=== PATIENT | female | born 1945 | race Caucasian/White ===

== ENCOUNTER 2020-07-08 10:33 | Day surgery (SDC) | payer MEDICARE, OTHER ==
[~2020-07-08] VITALS: Ht 154.9 cm; Wt 72.2 kg
[~2020-07-08 10:33] MED LIST: ASPI81CH PO; ASPI81EC PO; Antivert25 MG PO; BIOTIN1 MG PO; Bentyl20 MG; CIPRO500 MG PO; COLE625; LISI5 PO; NEBI5 PO; NITR.4SL SL; OMEGA-3 FISH O1 EAC6 PO; OMEP20ER PO; PANT40 PO; Prinivil10 MG PO; TRIHYD253B PO; VITAMIN D-32000 UNI1; VITAMIN D-32000 UNIT PO; VITAMIN D33000 UNIT PO
--- NOTE | 2020-07-08 11:16 | NUR ---
07/08/20 1116 Cedric Skelton 1ST IV ATTEMPT RIGHT HAND VEIN BLEW, 2ND IV ATTEMPT IN RIGHT AC VEIN BLEW-CMT
== END 2020-07-08 12:12 | disposition home or self-care (01) ==
LOC: ORSCSDS 10:33
PROVIDERS: Student in an Organized Health Care Education/Training Program
PROC: 0DB58ZX Excision of Esophagus, Via Natural or Artificial Opening Endoscopic, Diagnostic (ICD-10-PCS; principal; 2020-07-08 11:45)
PROC: 0DB88ZX Excision of Small Intestine, Via Natural or Artificial Opening Endoscopic, Diagnostic (ICD-10-PCS; principal; 2020-07-08 11:45)
PROC: 0DB68ZX Excision of Stomach, Via Natural or Artificial Opening Endoscopic, Diagnostic (ICD-10-PCS; principal; 2020-07-08 11:45)
DX: R14.0 Abdominal distension (gaseous) (principal); R13.10 Dysphagia, unspecified; K44.9 Diaphragmatic hernia without obstruction or gangrene; K29.70 Gastritis, unspecified, without bleeding; K31.9 Disease of stomach and duodenum, unspecified; I10 Essential (primary) hypertension; E78.5 Hyperlipidemia, unspecified; E66.9 Obesity, unspecified; Z68.30 Body mass index [BMI] 30.0-30.9, adult; Z79.82 Long term (current) use of aspirin; Z79.899 Other long term (current) drug therapy
CPT/HCPCS: 88305; 88342; J2405; J2704; J7120

== ENCOUNTER 2020-07-13 15:31 | Observation (INO) | payer MEDICARE, OTHER ==
[~2020-07-13] VITALS: Ht 154.9 cm; Wt 71.2 kg
[2020-07-13 15:58] LABS: Hematocrit 41.9 % (33.0-51.0); Hemoglobin 13.1 g/dL (11.5-16.0); Mean Corpuscular HGB 29.8 pg (26.0-34.0); Mean Corpuscular HGB Conc 31.3 g/dL (31.5-36.5); Mean Corpuscular Volume 95 fL (80-100); Platelet Count 224 K/mm3 (150-400); RDW Coefficient Variation 13.7 % (11.7-14.2); RDW Standard Deviation 48.1 fL (35.1-46.3); Red Blood Cell Count 4.39 M/mm3 (3.80-5.20); White Blood Cell Count 10.35 K/mm3 (4.00-11.30)
[2020-07-13 16:31] LABS: Alanine Aminotransfer (ALT/SGP 17 U/L (12-78); Albumin, Blood 3.3 g/dL (3.4-5.0); Albumin/Globulin Ratio 0.9 (0.8-1.8); Alk Phos 64 U/L (50-136); Anion Gap 7 mmol/L (6-16); Aspartate Aminotrans (AST/SGOT 11 U/L (12-37); Bilirubin, Total 0.5 mg/dL (0.1-1.0); Blood Urea Nitrogen 19 mg/dL (8-24); Bun/Creatinine Ratio 25.4 (12.0-20.0); CO2, Blood 25 mmol/L (21-32); Calcium, Blood 9.1 mg/dL (8.5-10.1); Chloride, Blood 108 mmol/L (98-108); Creatinine, Blood 0.75 mg/dL (0.40-1.00); Globulin, Blood 3.6 g/dL (2.2-4.0); Glomerular Filtration Rate >60 (60-); Glucose, Blood 115 mg/dL (70-99); Potassium, Blood 3.9 mmol/L (3.5-5.5); Sodium, Blood 140 mmol/L (136-145); Total Protein, Blood 6.9 g/dL (6.4-8.2); Troponin I <0.015 ng/mL (0.000-0.040)
[2020-07-13 16:56] LABS: BASOPHILS PERCENT MAN 1 % (0-2); EOSINOPHILS ABSOLUTE MAN 0.31 K/mm3 (0.00-0.68); EOSINOPHILS PERCENT MAN 3 % (0-6); LYMPHOCYTES ABSOLUTE MAN 4.76 K/mm3 (0.84-5.20); LYMPHOCYTES PERCENT MAN 46 % (21-46); MONOCYTES ABSOLUTE MAN 0.41 K/mm3 (0.16-1.47); MONOCYTES PERCENT MAN 4 % (4-13); NEUTROPHILS ABSOLUTE MAN 4.76 K/mm3 (1.96-9.15); SEG NEUTROPHILS PERCENT MAN 46 % (41-73); TOTAL CELLS COUNTED 100
[2020-07-13] MEDS ORDERED: EZET10 PO (18:33)
[2020-07-13] MEDS ORDERED: Bentyl20 MG PO (19:46)
--- NOTE | 2020-07-14 04:33 | NUR ---
ACCIDENT EXAMINER SUMMARY ALERT AND ORIENTED. IND TO BATHROOM. C/O CHEST PRESSURE AND TIGHTNESS. PRN NITRO HAS NOT BEEN NEEDED. PT HAS BEEN NPO SINCE MIDNIGHT IN PREP FOR VISIT TO [facility] TODAY WITH DR. HAM. VSS. BED IN LOWEST POSITION WITH CALL LIGHT IN REACH. WILL CONTINUE TO MONITOR AND REPORT TO ONCOMING RN.
--- NOTE | 2020-07-14 08:16 | NUR ---
REPORT GIVEN TO ELISA GOLD IN ICU. WILL SEND ALL BELONGINGS AND BRAKFAST TRAY.
--- NOTE | 2020-07-14 09:29 | NUR ---
ASSUMED CARE: REPORT RECEIVED FROM DENTON JACOBS RN AT BEDSIDE. PT ARRIVED TO ICU-12 AT 0805. ON ARRIVAL, THE PT IS AWAKE, A&O. ASSESSMENT CHARTED, VSS. ACCESS SITE TO R RADIAL & R FEMORAL. R RADIAL W/ TR BAND W/ 12 CC AIR PLACED AT 0750. R FEMORAL SITE W/ PERCLOSE DEVICE PLACED AT 0745. BOTH SITES ARE STABLE; NO BLEEDING, BRUISING OR HEMATOMA FORMATION NOTED. REPORT HAS ALSO BEEN CALLED FROM [facility] FLOOR RN. DR HAM AT BEDSIDE & STS THAT PT IS CLEARED TO GO HOME TODAY FROM A CARDIOLOGY STANDPOINT. WILL NOTIFY HOSPITALIST DURING ROUNDS. WILL COTINUE TO MONITOR & UPDATE NEEDED.
[2020-07-14] MEDS ORDERED: CLOP75 PO (13:20)
[2020-07-14] MEDS ORDERED: Isosorbide Mono30 MG PO (13:21)
--- NOTE | 2020-07-14 17:45 | NUR ---
DISCHARGE TO HOME: DRESSING TO R FEMORAL PUNCTURE SITE HAS BEEN CHANGED & SITE IS NOW STABLE W/ NO NEW ACTIVE BLEEDING OR OOZING TO THE AREA. SHE HAS BEEN ABLE TO AMBULATE IN THE ROOM & THE SITE REMAINS STABLE. R RADIAL SITE IS ALSO STABLE W/ TEGADERM DRESSING CDI. WRIST IMMOBILIZER REMAINS IN PLACE. RADIAL & FEMORAL SITE PRECAUTIONS HAVE BEEN DISCUSSED W/ THE PT & INSTRUCTION FORMS SIGNED. PLAVIX/ASA CONTRACT SIGNED. PT HAS VERBALIZED AGREEANCE TO ALL D/C INSTRUCTIONS & DENIES FURTHER QUESTIONS. SHE IS HAVING NO CP AT TIME OF D/C. ALL MONITOR & PIVs HAVE BEEN REMOVED & PT HAS TAKEN ALL BELONGINGS OUT W/ HER. PT TAKEN OUT OF FACILITY VIA WC BY EVAN Avila RN, AT APPROX 1730.
== END 2020-07-14 17:30 | disposition home or self-care (01) ==
LOC: ER 15:31 → MEDS 20:20 → ICUW 20:20 → MEDS 20:20 → ICUW 07-14 07:56
PROVIDERS: Physician Assistant; ADMIT Internal Medicine
PROC: B2111ZZ Fluoroscopy of Multiple Coronary Arteries using Low Osmolar Contrast (ICD-10-PCS; principal; 2020-07-14)
DX: I25.110 Atherosclerotic heart disease of native coronary artery with unstable angina pectoris (principal); I10 Essential (primary) hypertension; E78.5 Hyperlipidemia, unspecified; I73.9 Peripheral vascular disease, unspecified; E78.00 Pure hypercholesterolemia, unspecified; K21.9 Gastro-esophageal reflux disease without esophagitis; C91.10 Chronic lymphocytic leukemia of B-cell type not having achieved remission; I71.4 Abdominal aortic aneurysm, without rupture; Z88.1 Allergy status to other antibiotic agents; Z88.2 Allergy status to sulfonamides; Z88.8 Allergy status to other drugs, medicaments and biological substances; Z88.4 Allergy status to anesthetic agent; Z91.038 Other insect allergy status; Z79.02 Long term (current) use of antithrombotics/antiplatelets; Z79.82 Long term (current) use of aspirin; Z79.899 Other long term (current) drug therapy; Z86.73 Personal history of transient ischemic attack (TIA), and cerebral infarction without residual deficits; Z95.1 Presence of aortocoronary bypass graft; Z90.710 Acquired absence of both cervix and uterus; Z90.49 Acquired absence of other specified parts of digestive tract; Z90.711 Acquired absence of uterus with remaining cervical stump; Z23 Encounter for immunization
CPT/HCPCS: 36415; 71046; 80053; 84484; 85025; 93005; 93010; 93455; 93567; 96374; 99152; 99153; 99285-25; A9270; A9270-GY; C1760; C1769; C1894; G0008; G0378; J1644; J2250; J3010; J7030; Q9967

== ENCOUNTER 2020-08-20 10:20 | Day surgery (SDC) | payer MEDICARE, OTHER ==
[~2020-08-20] VITALS: Ht 154.9 cm; Wt 74.0 kg
[~2020-08-20 10:20] MED LIST changes: +Bentyl20 MG PO; +CLOP75 PO; +EZET10 PO; +Isosorbide Mono30 MG PO
[2020-08-20] MEDS ORDERED: PANT40 PO (11:02)
--- NOTE | 2020-08-20 17:36 | NUR ---
PT DRESSED SELF. TR BAND REMOVED, RADIAL SITE CLEANSED AND CLOTH DOT PLACED. SALINE LOCK REMOVED WITH CATHETER INTACT.
--- NOTE | 2020-08-20 17:50 | NUR ---
PT AND RECEIVED DISCHARGE INSTRUCTIONS, MED LIST AND AFTER CARE INSTRUCTIONS; VERBALIZED GOOD UNDERSTANDING. PT LEFT FACILITY VIA W/C CONDITION STABLE.
== END 2020-08-20 17:50 | disposition home or self-care (01) ==
LOC: MHTC 10:20
DX: I77.1 Stricture of artery (principal); I10 Essential (primary) hypertension; E78.5 Hyperlipidemia, unspecified; E78.00 Pure hypercholesterolemia, unspecified; C91.10 Chronic lymphocytic leukemia of B-cell type not having achieved remission; I73.9 Peripheral vascular disease, unspecified; K21.9 Gastro-esophageal reflux disease without esophagitis; E55.9 Vitamin D deficiency, unspecified; I25.10 Atherosclerotic heart disease of native coronary artery without angina pectoris; Z86.73 Personal history of transient ischemic attack (TIA), and cerebral infarction without residual deficits; Z95.1 Presence of aortocoronary bypass graft; Z88.1 Allergy status to other antibiotic agents; Z88.2 Allergy status to sulfonamides; Z88.8 Allergy status to other drugs, medicaments and biological substances; Z91.030 Bee allergy status; Z79.82 Long term (current) use of aspirin; Z79.01 Long term (current) use of anticoagulants; Z79.899 Other long term (current) drug therapy; Z79.02 Long term (current) use of antithrombotics/antiplatelets
CPT/HCPCS: 76937; 86900; 86901; 99152; 99153; C1769; C1876; C1887; C1894; J1644; J2250; J3010; J7030; J7050; Q9967

== ENCOUNTER 2021-05-03 04:34 | Emergency (ER) | payer MEDICARE, OTHER ==
[~2021-05-03] VITALS: Ht 152.4 cm; Wt 63.5 kg
[2021-05-03 05:44] LABS: BASOPHILS ABSOLUTE AUTO 0.04 K/mm3 (0.00-0.23); BASOPHILS PERCENT AUTO 0 % (0-2); EOSINOPHILS ABSOLUTE AUTO 0.17 K/mm3 (0.00-0.68); EOSINOPHILS PERCENT AUTO 1 % (0-6); Hemoglobin 13.3 g/dL (11.5-16.0); Mean Corpuscular HGB 30.6 pg (26.0-34.0); Mean Corpuscular HGB Conc 32.4 g/dL (31.5-36.5); Mean Corpuscular Volume 95 fL (80-100); Mean Platelet Volume 8.8 fL (9.1-12.4); Platelet Count 238 K/mm3 (150-400); RDW Standard Deviation 48.7 fL (35.1-46.3); Red Blood Cell Count 4.34 M/mm3 (3.80-5.20); White Blood Cell Count 13.41 K/mm3 (4.00-11.30)
[2021-05-03 05:47] LABS: IMMATURE GRAN ABSOLUTE AUTO 0.02 K/mm3 (0.00-0.10); IMMATURE GRAN PERCENT AUTO 0 % (0-1); LYMPHOCYTES PERCENT AUTO 55 % (21-46); MONOCYTES ABSOLUTE AUTO 0.89 K/mm3 (0.16-1.47); MONOCYTES PERCENT AUTO 7 % (4-13); NEUTROPHILS ABSOLUTE AUTO 4.89 K/mm3 (1.96-9.15); NEUTROPHILS PERCENT AUTO 37 % (41-73)
[2021-05-03 06:05] LABS: Alanine Aminotransfer (ALT/SGP 22 U/L (12-78); Albumin, Blood 3.1 g/dL (3.4-5.0); Albumin/Globulin Ratio 0.9 (0.8-1.8); Alk Phos 64 U/L (50-136); Anion Gap 6 mmol/L (6-16); Aspartate Aminotrans (AST/SGOT 11 U/L (12-37); Bilirubin, Total 0.3 mg/dL (0.1-1.0); Blood Urea Nitrogen 16 mg/dL (8-24); Bun/Creatinine Ratio 22.5 (12.0-20.0); CO2, Blood 26 mmol/L (21-32); Calcium, Blood 8.9 mg/dL (8.5-10.1); Chloride, Blood 111 mmol/L (98-108); Creatinine, Blood 0.71 mg/dL (0.40-1.00); Globulin, Blood 3.5 g/dL (2.2-4.0); Glomerular Filtration Rate >60 (60-); Glucose, Blood 99 mg/dL (70-99); Magnesium, Blood 2.3 mg/dL (1.6-2.4); Potassium, Blood 3.9 mmol/L (3.5-5.5); Sodium, Blood 143 mmol/L (136-145); Total Protein, Blood 6.6 g/dL (6.4-8.2); Troponin I <0.015 ng/mL (0.000-0.040)
== END 2021-05-03 08:48 | disposition home or self-care (01) ==
LOC: ER 04:34
PROVIDERS: Emergency Medicine
DX: R07.89 Other chest pain (principal); I10 Essential (primary) hypertension; K21.9 Gastro-esophageal reflux disease without esophagitis; I25.10 Atherosclerotic heart disease of native coronary artery without angina pectoris; Z79.899 Other long term (current) drug therapy; Z79.82 Long term (current) use of aspirin; Z79.02 Long term (current) use of antithrombotics/antiplatelets; Z88.2 Allergy status to sulfonamides; Z88.8 Allergy status to other drugs, medicaments and biological substances; Z91.038 Other insect allergy status; Z88.4 Allergy status to anesthetic agent; Z95.1 Presence of aortocoronary bypass graft
CPT/HCPCS: 71046; 80053; 83690; 83735; 83880; 84484; 85025; 93005; 93010; 99285-25

== ENCOUNTER 2021-09-04 10:08 | Day surgery (SDC) | payer MEDICARE, OTHER ==
[~2021-09-04] VITALS: Ht 154.9 cm; Wt 62.1 kg
[2021-09-04] MEDS ORDERED: LEVSOD25 PO (10:32)
[2021-09-04] MEDS ORDERED: Hair, Skin & N1 EACH PO (10:32)
--- NOTE | 2021-09-04 13:35 | NUR ---
PT RETURNED TO RECOVERY ROOM IN BED. RIGHT FEMORAL GROIN SITE SOFT NON-TENDER WTIH NO HEMATOMA, NO PULSATILE BLEEDING AND INTACT DRESSING. R PT PULSE DOPPLER. PT DENIES CHEST PAIN. CALL LIGHT IN REACH.
--- NOTE | 2021-09-04 13:55 | NUR ---
DR KENNY IN ROOM TO SEE PT.
--- NOTE | 2021-09-04 15:00 | NUR ---
right groin site soft and nontender. PT pulse doppler. no bleeding. no hematoma.
--- NOTE | 2021-09-04 15:49 | NUR ---
right groin site remains soft and non tender. no bleeding, no hematoma.
--- NOTE | 2021-09-04 16:15 | NUR ---
right groin site soft and nontender. no hematoma. no bleeding. PT doppler
--- NOTE | 2021-09-04 17:03 | NUR ---
PATIENT UP TO REST ROOM. RIGHT GROIN SITE REMAINS SOFT AND NONTENDER. NO HEMATOMA.
--- NOTE | 2021-09-04 17:07 | NUR ---
IV SITE DCED WITH CATHETER IN TACT
--- NOTE | 2021-09-04 17:46 | NUR ---
PATIENT VERBALIZED UNDERSTANDING OF DISCHARGE INSTRUCTIONS AND PRECAUTIONS. IV SITE DCED WITH CATHETER INTACT. RIGHT GROIN SITE REMAINS SOFT AND NONTENDER. NO FURTHER QUESTIONS. PATIENT TRANSFERRED TO CAR VIA WHEELCHAIR WHERE IS DRIVING.
== END 2021-09-04 17:00 | disposition home or self-care (01) ==
LOC: MHTC 10:08
DX: K55.069 Acute infarction of intestine, part and extent unspecified (principal); Z88.1 Allergy status to other antibiotic agents; Z88.8 Allergy status to other drugs, medicaments and biological substances; Z88.2 Allergy status to sulfonamides
CPT/HCPCS: 76937; 99152; 99153; C1760; C1769; C1876; C1887; C1894; J1644; J2250; J3010; J7030; Q9967

== ENCOUNTER 2021-09-09 06:21 | Inpatient (IN) | payer MEDICARE, OTHER ==
[~2021-09-09] VITALS: Ht 154.9 cm; Wt 55.4 kg
[~2021-09-09 06:21] MED LIST changes: +Hair, Skin & N1 EACH PO; +LEVSOD25 PO
[2021-09-09] MEDS ORDERED: PANT40 PO (07:29)
--- NOTE | 2021-09-09 12:11 | NUR ---
PT BEGAN TO APPEAR PALE, STATED SHE WAS HAVING DIFFICULTY TAKING A DEEP BREATH, AND JUST FELT "HORRIBLE". BP CURRENTLY 50'S/30'S. DR. JOHNSON NOTIFIED, IS AT BEDSIDE. FLUIDS INFUSING WIDE OPEN.
--- NOTE | 2021-09-09 12:33 | NUR ---
PT STATES SHE IS FEELING BETTER AFTER FLUID BOLUS. BP CURRENTLY 106/51. PENDING CT SCAN.
--- NOTE | 2021-09-09 12:58 | NUR ---
PT BACK FROM IMG. PTS R FEM SITE IS STABLE WITH NO BLEEDING, OOZING OR HEMATOMA NOTED AT THIS TIME. PT DENIES ANY PAIN. RRAD IS ALSO STABLE WITH NO BLEEDING, OOZING OR HEMATOMA NOTED. VSS. WILL CONTINUE TO MONITOR. PT DENIES ANY NEEDS AT THIS TIME.
--- NOTE | 2021-09-09 13:26 | NUR ---
PT ASSISTED TO USE BEDPAN. RIGHT GROIN AND RADIAL SITES REMAIN STABLE. SBP CURRENTLY IN THE 110'S. CALL LIGHT IN REACH. PENDING ADMIT, DR JOHNSON TO SPEAK WITH MANAGER OF NETWORK.
[2021-09-09 13:47] LABS: Hematocrit 32.2 % (33.0-51.0); Hemoglobin 10.7 g/dL (11.5-16.0)
--- NOTE | 2021-09-09 14:45 | NUR ---
PT TO ICU VIA BED, ON MONITOR FOR TRANSPORT. VS STABLE AT TIME OF ADMIT TO ICU. PT CONTINUES TO C/O UPPER ABD AND LOWER CHEST PAIN, ALONG WITH FREQUENT BELCHING, AND SOME RIGHT SHOULDER PAIN. PT'S SPOUSE, ASHUTOSH, HAS BEEN CALLED AND UPDATED WITH PT'S ADMIT STATUS.
[2021-09-09 16:04] LABS: Hematocrit 32.7 % (33.0-51.0); Hemoglobin 10.9 g/dL (11.5-16.0)
--- NOTE | 2021-09-09 16:47 | NUR ---
ADMIT/SHIFT SUMMARY PT ARRIVED TO ICU 14 AT 1440 VIA BED. PT S/P TUFTING MACHINE FIXER PROCEDURE. PT WITH RIGHT FEMORAL ACCESS SITE WITH DRESSING C/D/I, AND RIGHT RADIAL TR BAND IN PLACE WITH ARM BOARD. PT APPEARS PALE. PT IS AWAKE, ALERT, AND ORIENTED. PT TALKATIVE. PT COMPLAINS OF SOME INTERMITTENT RIGHT SHOULDER PAIN AND UPPER ABD DISCOMFORT. VITAL SIGNS STABLE. PT ON ROOM AIR. POWERGLIDE TO ANGELA PLACED. DR LR, DR EDOUARD, AND DR JOHNSON HAVE ALL DISCUSSED THE CASE AND HAVE SEEN THE PT. TR BAND BEING DEFLATED AT THIS TIME. WILL CONTINUE TO MONITOR AND REPORT OFF TO ONCOMING RN.
--- NOTE | 2021-09-09 19:30 | NUR ---
ASSUMED CARE PATIENT LYING IN BED WITH EYES CLOSED AND TELEVISION ON. PICC TO ANGELA SALINE LOCKED. PERSONAL BELONGINGS IN CUPBOARD IN ROOM. PULSE 110'S, SPO2 MID TO HIGH 90'S, BP STABLE W/ MAPS GREATER THAN 65. PATIENT OPENS EYES SPONTANEOUSLY AND GREETS STAFF UPON ENTERING ROOM. FOLLOWS DIRECTIONS AND MAKES PLEASANT CONVERSATION. REPORT COMPLETED W/ DAYSHIFT ALLA.
[2021-09-09 21:10] LABS: Hematocrit 32.1 % (33.0-51.0); Hemoglobin 10.6 g/dL (11.5-16.0)
[2021-09-10 03:13] LABS: BASOPHILS ABSOLUTE AUTO 0.01 K/mm3 (0.00-0.23); BASOPHILS PERCENT AUTO 0 % (0-2); EOSINOPHILS PERCENT AUTO 0 % (0-6); Hematocrit 30.9 % (33.0-51.0); Hemoglobin 10.2 g/dL (11.5-16.0); IMMATURE GRAN ABSOLUTE AUTO 0.09 K/mm3 (0.00-0.10); IMMATURE GRAN PERCENT AUTO 1 % (0-1); LYMPHOCYTES ABSOLUTE AUTO 1.53 K/mm3 (0.84-5.20); LYMPHOCYTES PERCENT AUTO 12 % (21-46); MONOCYTES ABSOLUTE AUTO 0.71 K/mm3 (0.16-1.47); MONOCYTES PERCENT AUTO 6 % (4-13); Mean Corpuscular HGB 30.7 pg (26.0-34.0); Mean Corpuscular Volume 93 fL (80-100); NEUTROPHILS PERCENT AUTO 82 % (41-73); Platelet Count 161 K/mm3 (150-400); RDW Coefficient Variation 13.5 % (11.7-14.2); RDW Standard Deviation 46.4 fL (35.1-46.3); Red Blood Cell Count 3.32 M/mm3 (3.80-5.20); White Blood Cell Count 12.94 K/mm3 (4.00-11.30)
[2021-09-10 05:27] LABS: Anion Gap 9 mmol/L (6-16); Blood Urea Nitrogen 20 mg/dL (8-24); Bun/Creatinine Ratio 31.5 (12.0-20.0); CO2, Blood 23 mmol/L (21-32); Calcium, Blood 8.7 mg/dL (8.5-10.1); Chloride, Blood 111 mmol/L (98-108); Creatinine, Blood 0.63 mg/dL (0.40-1.00); Glomerular Filtration Rate >60 (60-); Glucose, Blood 126 mg/dL (70-99); Sodium, Blood 143 mmol/L (136-145)
--- NOTE | 2021-09-10 06:04 | NUR ---
SHIFT SUMMARY PATIENT CONTINUED TO HAVE ABD/RT RIB SPASMING/CRAMPING T/O THE NIGHT. ORDERS OBTAINED FOR MORPHINE 1MG Q4H PRN, BUT PATIENT DECLINED D/T FAMILY ALLERGY TO MORPHINE. TYLENOL 650MG Q6H PRN STARTED AND 2 DOSES GIVEN. PATIENT STILL EXPERIENCING INTERMITTENT PAIN. RT RADIAL AND RT FEMORAL SITES ARE BOTH FREE OF HEMATOMA, OOZING, BLEEDING, AND TENDERNESS. V/S REMAINED STABLE W/ HR 80'S-90'S, EXCEPT WHEN EXPERIENCING PAIN INCREASES TO 130'S-140'S; BP STABLE W/ SBP GREATER THAN 100 AND MAPS GREATER THAN 65. PULSES IN ELSIE DP AND PT ABSENT, POPLITEAL PULSES FAINT ELSIE. FEET ARE WARM PINK AND CAP REFILL IS LESS THAN 3 SECONDS. BT REMAIN ACTIVE X 4 W/ NO BM DURING SHIFT. 400ML URINE OUT. PICC TO ANGELA SALINE LOCKED. PATIENT REMAINED NPO EXCEPT FOR SIPS OF WATER TO TAKE MEDICATIONS.
--- NOTE | 2021-09-10 11:23 | NUR ---
ASSUMED CARE @0700 PATIENT IS ALERT AND ORIENTED X4. 02 SATS >93% OM RA. HR SR-ST 90s-110, HR INCREASES UP TO 140s WHEN PATIENT HAS ABDOMINAL CRAMPS. RIGHT RADIAL SITE HAS SMALL AMOUNT OF BRUISING, CLEAR DRESSING IN PLACE WITH SPLINT, SENSATIOND, TEMP AND COLOR WNL, PULSE STRONG. RIGHT FEMORAL SITE WITH TEGADERM CHG IN PLACE, C/D/I. NO HEMATOMA FELT BUT ABDOMEN AND AROUND SITE VERY TENDER WITH PALPATION. DR. JOHNSON TO ROOM TO ASSESS PATIENT IN THE AM, PAIN MEDS ORDERED, ADVANCED TO CLEAR LIQUID DIET AND CHANGED TO PCU STATUTS. PATIENT IS ABLE TO MOVE SLIGHTLY IN BED BUT IS STILL PAINFUL. USES BEDPAN AND BOWEL TONES ACTIVE. INCIDENT WITH TRYING TO VISIT PATIENT OUTSIDE OF VISITING HOUR AND CAUSING A SCENE EXPLAINED TO PATIENT, SHE STATED HE KNEW SHE WAS HERE, WHEN SHE WAS ADMITTED TO ICU AND SHE HAS BEEN TALKING TO HIM ON THE PHONE TODAY.
--- NOTE | 2021-09-10 11:27 | NUR ---
PT'S ARRIVED AT [facility], STOPPED BY SCREENERS AND REMINDED OF [facility] CURRENT VISITATION POLICY. PT'S THEN SCREAMED PROFANITIES AT SCREENER AND PROCEEDED TO ENTER THE HOSPITAL. SECURITY WAS CALLED AND PT WAS STOPPED OUTSIDE OF ICU EAST DOOR. SPOUSE CONTINUED SCREAM, YELL, AND CURSE DEMANDING TO SEE HIS STATING "NO ONE TOLD ME SHE WAS ADMITTED". SPOUSE WAS GIVEN A QUICK UPDATE ON PT'S STATUS AND TOLD THAT HE WAS WELCOME TO COME BACK DURING VISITING HOURS. SPOUSE CONTINUED TO BE BELLIGERENT AND WAS ESCORTED OFF [facility] PROPERTY BY SECURITY AND ASKED TO NOT RETURN. THIS NURSE SPOKE WITH PT AND PT STATED THAT SHE WAS "UNAWARE OF VISITING POLICY" AND THAT HER WAS "AWARE THAT SHE WAS IN THE ICU BECAUSE DR. JOHNSON TALKED TO HIM YESTERDAY AND SHE SPOKE WITH HIM THIS MORNING". INFORMED PT THAT HER HAS BEEN ASKED TO NOT RETURN D/T SITUATION THIS MORNING...PT SMILED AND STATED "HIS BEHAVIOR DOESN'T SURPRISE ME".
--- NOTE | 2021-09-10 18:32 | NUR ---
SHIFT SUMMARY PATIENT IS ALERT AND ORIENTED X4. 02 SATS >95% ON RA. DENIES SOB. HR SR-ST 90s-120, HR INCREASES WITH PAIN AND ACTIVITY. BP STABLE. RADIAL AND FEMORAL SITES WNL. RIGHT ARM SPLINT IN PLACE. NO HEMATOMA AT EITHER SITE. ABDOMEN FIRM AND TENDER. PATIENT HAS BEEN ENCOURAGE TO MOVE BUT FEELS SHE IS TOO PAINFUL TO MOVE MUCH. CLEAR LIQUID DIET. PATIENT PASSING FLATUS. ABLE TO REPOSITION SELF SIDE TO SIDE. CALLS APPROPRIETLY, USES BEDPAN. WILL CONTINUE TO MONITOR AND REPORT TO FURNITURE ARRANGER RN.
--- NOTE | 2021-09-10 19:30 | NUR ---
Assumed care after report recv'd. assessment complete, complains of abd cramping but does not want pain meds at this time. Discussed bentyl as opition, states takes bentyl at home and states would like to try it. Advised if pain worsens to notify nurse for pain meds, verbalizes understanding.
[2021-09-10 22:01] LABS: Hemoglobin 9.2 g/dL (11.5-16.0)
[2021-09-11 03:24] LABS: BASOPHILS ABSOLUTE AUTO 0.02 K/mm3 (0.00-0.23); BASOPHILS PERCENT AUTO 0 % (0-2); EOSINOPHILS ABSOLUTE AUTO 0.01 K/mm3 (0.00-0.68); EOSINOPHILS PERCENT AUTO 0 % (0-6); Hematocrit 24.9 % (33.0-51.0); Hemoglobin 8.1 g/dL (11.5-16.0); IMMATURE GRAN ABSOLUTE AUTO 0.11 K/mm3 (0.00-0.10); IMMATURE GRAN PERCENT AUTO 1 % (0-1); LYMPHOCYTES ABSOLUTE AUTO 3.12 K/mm3 (0.84-5.20); LYMPHOCYTES PERCENT AUTO 22 % (21-46); MONOCYTES ABSOLUTE AUTO 1.04 K/mm3 (0.16-1.47); MONOCYTES PERCENT AUTO 8 % (4-13); Mean Corpuscular HGB 30.8 pg (26.0-34.0); Mean Corpuscular HGB Conc 32.5 g/dL (31.5-36.5); Mean Corpuscular Volume 95 fL (80-100); NEUTROPHILS ABSOLUTE AUTO 9.65 K/mm3 (1.96-9.15); NEUTROPHILS PERCENT AUTO 69 % (41-73); Platelet Count 145 K/mm3 (150-400); RDW Coefficient Variation 13.7 % (11.7-14.2); RDW Standard Deviation 47.2 fL (35.1-46.3); Red Blood Cell Count 2.63 M/mm3 (3.80-5.20); White Blood Cell Count 13.95 K/mm3 (4.00-11.30)
[2021-09-11 03:40] LABS: Anion Gap 4 mmol/L (6-16); Blood Urea Nitrogen 34 mg/dL (8-24); Bun/Creatinine Ratio 54.6 (12.0-20.0); CO2, Blood 27 mmol/L (21-32); Calcium, Blood 8.2 mg/dL (8.5-10.1); Chloride, Blood 109 mmol/L (98-108); Creatinine, Blood 0.62 mg/dL (0.40-1.00); Glomerular Filtration Rate >60 (60-); Glucose, Blood 116 mg/dL (70-99); Potassium, Blood 4.1 mmol/L (3.5-5.5); Sodium, Blood 140 mmol/L (136-145)
--- NOTE | 2021-09-11 05:56 | NUR ---
Pain more controlled this shift. Took bentyl and pain med at beginning of shift then rested through night. Denies pain at this time and agrees to attempting to get out of bed today. Rt wrist and Rt groin unchanged. Abd continues to be tender but soft to palpation.
--- NOTE | 2021-09-11 10:31 | NUR ---
ASSUMED CARE @0700 PATIENT ALERT AND ORIENTED X4. 02 SATS 98% ON RA. DENIES SOB. LUNGS CLEAR. HR SR 80s. BP STABLE, DENIES CP. 1/10 ABDOMINAL PAIN BUT STATES IT IS SIGNIFICANTLY BETTER THAN YESTERDAY. RIGHT RADIAL AND RIGHT FEMORAL SITES WNL, RIGHT ARM SPLINT IN PLACE AND RIGHT FEMORAL DRESSING C/D/I, NO BLEEDING. PATIENT UP TO BSC, THEN CHAIR FOR BREAKFAST. CALL LIGHT IN REACH, SEE SHIFT ASSESSMENT FOR MORE DETAIL.
[2021-09-11 14:06] LABS: Hemoglobin 8.1 g/dL (11.5-16.0)
--- NOTE | 2021-09-11 17:38 | NUR ---
SHIFT SUMMARY PATIENT ALERT AND ORIENTED X4. 02 SATS >95% ON RA. HR SR @80s. TELE DC'd AND PATIENT MADE MEDICAL STATUS. BP STABLE. PATIENT UP TO CHAIR FOR MOST THE SHIFT. UP TO BSC FOR TOILETING, LARGE FORMED BM THIS SHIFT. PATIENT STATES HER ABD PAIN HAS DECREASED AND SHE FEELS MUCH BETTER. RIGHT RADIAL AND FEMORAL SITES WNL. PATIENT ADVANCED TO CARDIAC DIET. DR. JOHNSON TO ROOM TO SEE PATIENT, WANTS HER TO STAY OVERNIGHT TO TREND HGB IN THE AM. CALL LIGHT IN REACH.
--- NOTE | 2021-09-11 21:35 | NUR ---
SHIFT ASSESSMENT PT ALERT AND ORIENTED X 4. MED STATUS, NO TELE. VSS. DENIES ANY ABDOMINAL PAIN, CP, OR SOB. R WRIST ACCESS SITE WITH ARM BOARD IN PLACE. R FEMORAL ACCESS SITE WNL. PT ABLE TO ADJUST SELF IN BED TO POSITION OF COMFORT. ON CARDIAC DIET, CONSUMED 90% OF DINNER TRAY. CALL LIGHT WITHIN REACH, WILL CONTINUE TO MONITOR.
--- NOTE | 2021-09-12 06:17 | NUR ---
SHIFT SUMMARY PT REMAINS ALERT AND ORIENTED. ABLE TO SLEEP FOR MOST OF THE NIGHT. DENIES ABDOMINAL PAIN. STATES SHE FEELS MUCH BETTER. R WRIST AND FEMORAL SITE WNL, NO CHANGES. VSS. PT AMBULATING TO BEDSIDE COMMODE c STANDBY ASSIST. NO ACUTE CHANGES DURING THE NIGHT.
--- NOTE | 2021-09-12 09:37 | NUR ---
ASSUMED CARE @0700 PATIENT ALERT AND ORIENTED X4. 02 SATS >95% ON RA, DENIES SOB. HR 80s, BP STABLE. DENIES CP/PRESSURE. SOME ABDOMINAL TENDERNESS 2/10, CRAMPING. PATIENT DENIES NEED FOR PAIN MEDICATION. RIGHT RADIAL AND FEMORAL SITES WNL, DRESSING C/D/I. PATIENT ATE SMALL AMOUNT OF BREAKFAST, NOW UP TO CHAIR. DR. CHAVEZ IN ROOM TO SEE PATIENT THIS AM. SEE SHIFT ASSESSMENT FOR MORE DETAIL.
--- NOTE | 2021-09-12 12:28 | NUR ---
CALLED PATIENTS ASHUTOSH AND UPDATED HIM ON PATIENTS CONDITION AND THAT THE DOCTOR WANTS TO POSSIBLY KEEP HER IN THE HOSPITAL UNTIL TOMORROW.
[2021-09-12 16:25] LABS: BASOPHILS ABSOLUTE AUTO 0.06 K/mm3 (0.00-0.23); BASOPHILS PERCENT AUTO 1 % (0-2); EOSINOPHILS ABSOLUTE AUTO 0.11 K/mm3 (0.00-0.68); EOSINOPHILS PERCENT AUTO 1 % (0-6); Hematocrit 29.6 % (33.0-51.0); Hemoglobin 9.9 g/dL (11.5-16.0); IMMATURE GRAN ABSOLUTE AUTO 0.07 K/mm3 (0.00-0.10); IMMATURE GRAN PERCENT AUTO 1 % (0-1); LYMPHOCYTES ABSOLUTE AUTO 3.65 K/mm3 (0.84-5.20); LYMPHOCYTES PERCENT AUTO 28 % (21-46); MONOCYTES PERCENT AUTO 8 % (4-13); Mean Corpuscular HGB 30.6 pg (26.0-34.0); Mean Corpuscular HGB Conc 33.4 g/dL (31.5-36.5); Mean Corpuscular Volume 91 fL (80-100); Mean Platelet Volume 8.9 fL (9.1-12.4); NEUTROPHILS ABSOLUTE AUTO 8.13 K/mm3 (1.96-9.15); NEUTROPHILS PERCENT AUTO 62 % (41-73); Platelet Count 167 K/mm3 (150-400); RDW Coefficient Variation 13.4 % (11.7-14.2); RDW Standard Deviation 45.7 fL (35.1-46.3); Red Blood Cell Count 3.24 M/mm3 (3.80-5.20); White Blood Cell Count 13.12 K/mm3 (4.00-11.30)
[2021-09-12 16:44] LABS: Albumin, Blood 2.5 g/dL (3.4-5.0); Anion Gap 8 mmol/L (6-16); Blood Urea Nitrogen 19 mg/dL (8-24); Bun/Creatinine Ratio 38.8 (12.0-20.0); CO2, Blood 23 mmol/L (21-32); Calcium, Blood 8.2 mg/dL (8.5-10.1); Chloride, Blood 105 mmol/L (98-108); Creatinine, Blood 0.49 mg/dL (0.40-1.00); Glomerular Filtration Rate >60 (60-); Glucose, Blood 102 mg/dL (70-99); Phosphorus, Blood 2.9 mg/dL (2.5-4.9); Potassium, Blood 4.1 mmol/L (3.5-5.5); Sodium, Blood 136 mmol/L (136-145)
--- NOTE | 2021-09-12 17:46 | NUR ---
SHIFT SUMMARY PATIENT ALERT AND ORIENTED X3, THINKS SHE IS IN [place] AND REPEATS SELF FREQUENTLY. DR. CHAVEZ AWARE AND TO ROOM TO ASSESS PATIENT, HOSPITALIST ON PT CASE NOW. HEAD CT ORDERED. NO OTHER NEUROLOGICAL CHANGES. 1 UNIT PRBCs TRANSFUSED PER DR. CHAVEZ D/T HGB DECREASING TO 7.5. ABD CT DONE. 02 SATS 98% ON RA. HR 90s. BP STABLE. PATIENT IS SBA. EATING SMALL AMOUNTS OF HER MEALS BUT ABLE TO EAT WITHOUT DISCOMFORT. USES BSC. CALL LIGHT IN REACH. PATIENT TO TRANSFER TO ROOM 210.
--- NOTE | 2021-09-12 18:32 | NUR ---
1810 to room via wheelchair, standby assist to bathroom. right wrist with splint in plce-pt wiggles fingers spontaneously and denies any numbness or tingling. small bruise present at site. right groin site without pain bleeding or bruising.
--- NOTE | 2021-09-12 19:46 | NUR ---
RECEIVED REPORT AND ASSUMED CARE OF PT. SHE HAS JUST RETURNED FROM RADIOLOGY. SHE IS A&OX4. DENIES ANY NEEDS AT THIS TIME, TAKLING ON THE PHONE. SHARI.
--- NOTE | 2021-09-13 06:03 | NUR ---
SHIFT SUMMARY: LANRE IS A&OX4, VSS, NO ACUTE EVENTS OVERNIGHT. SHE REPORTS THAT THE PAIN IN HER RIGHT ARM IS IMPROVING. SHE IS TOLERATING PO INTAKE WELL, STANDBY ASSIST TO THE BATHROOM, PICC TO ANGELA PATENT. SHE IS LYING IN BED WITH THE CALL LIGHT IN REACH. WILL REPORT TO DAY SHIFT RN.
[2021-09-13 06:04] LABS: BASOPHILS ABSOLUTE AUTO 0.04 K/mm3 (0.00-0.23); BASOPHILS PERCENT AUTO 0 % (0-2); EOSINOPHILS ABSOLUTE AUTO 0.14 K/mm3 (0.00-0.68); EOSINOPHILS PERCENT AUTO 1 % (0-6); Hematocrit 26.6 % (33.0-51.0); IMMATURE GRAN ABSOLUTE AUTO 0.04 K/mm3 (0.00-0.10); IMMATURE GRAN PERCENT AUTO 0 % (0-1); LYMPHOCYTES ABSOLUTE AUTO 3.21 K/mm3 (0.84-5.20); LYMPHOCYTES PERCENT AUTO 30 % (21-46); MONOCYTES ABSOLUTE AUTO 0.97 K/mm3 (0.16-1.47); MONOCYTES PERCENT AUTO 9 % (4-13); Mean Corpuscular HGB 30.7 pg (26.0-34.0); Mean Corpuscular HGB Conc 33.8 g/dL (31.5-36.5); Mean Corpuscular Volume 91 fL (80-100); Mean Platelet Volume 8.7 fL (9.1-12.4); NEUTROPHILS ABSOLUTE AUTO 6.18 K/mm3 (1.96-9.15); NEUTROPHILS PERCENT AUTO 58 % (41-73); Platelet Count 165 K/mm3 (150-400); RDW Coefficient Variation 13.5 % (11.7-14.2); RDW Standard Deviation 44.9 fL (35.1-46.3); Red Blood Cell Count 2.93 M/mm3 (3.80-5.20); White Blood Cell Count 10.58 K/mm3 (4.00-11.30)
[2021-09-13 06:30] LABS: Anion Gap 5 mmol/L (6-16); Blood Urea Nitrogen 16 mg/dL (8-24); Bun/Creatinine Ratio 26.5 (12.0-20.0); CO2, Blood 26 mmol/L (21-32); Calcium, Blood 8.2 mg/dL (8.5-10.1); Chloride, Blood 109 mmol/L (98-108); Glomerular Filtration Rate >60 (60-); Glucose, Blood 88 mg/dL (70-99); Sodium, Blood 140 mmol/L (136-145)
[2021-09-13 12:16] LABS: BASOPHILS ABSOLUTE AUTO 0.03 K/mm3 (0.00-0.23); BASOPHILS PERCENT AUTO 0 % (0-2); EOSINOPHILS ABSOLUTE AUTO 0.12 K/mm3 (0.00-0.68); EOSINOPHILS PERCENT AUTO 1 % (0-6); Hematocrit 29.4 % (33.0-51.0); Hemoglobin 9.6 g/dL (11.5-16.0); IMMATURE GRAN ABSOLUTE AUTO 0.04 K/mm3 (0.00-0.10); IMMATURE GRAN PERCENT AUTO 0 % (0-1); LYMPHOCYTES ABSOLUTE AUTO 3.12 K/mm3 (0.84-5.20); LYMPHOCYTES PERCENT AUTO 29 % (21-46); MONOCYTES ABSOLUTE AUTO 1.14 K/mm3 (0.16-1.47); MONOCYTES PERCENT AUTO 11 % (4-13); Mean Corpuscular HGB 29.8 pg (26.0-34.0); Mean Corpuscular HGB Conc 32.7 g/dL (31.5-36.5); Mean Corpuscular Volume 91 fL (80-100); Mean Platelet Volume 9.1 fL (9.1-12.4); NEUTROPHILS PERCENT AUTO 59 % (41-73); Platelet Count 182 K/mm3 (150-400); RDW Coefficient Variation 13.5 % (11.7-14.2); RDW Standard Deviation 45.6 fL (35.1-46.3); Red Blood Cell Count 3.22 M/mm3 (3.80-5.20); White Blood Cell Count 10.85 K/mm3 (4.00-11.30)
--- NOTE | 2021-09-13 15:09 | NUR ---
DISCHARGE SUMMARY PT A&OX4, VSS, LEFT FLOOR VIA WC WITH OLIVER FILTER OPERATOR, TO GO HOME WITH , WITH DC PACKET. PICC DC'D. DC INSTRUCTIONS PROVIDED. PT REP UNDERSTANDING THOSE INSTRUCTIONS.
== END 2021-09-13 15:00 | disposition home or self-care (01) | DRG 356 ==
LOC: MHTC 06:21 → SURS 14:20 → ICUW 14:20 → SURS 09-12 17:54
PROVIDERS: Family Medicine; Internal Medicine; Internal Medicine Critical Care Medicine; ADMIT Radiology Diagnostic Radiology
PROC: 3E033XZ Introduction of Vasopressor into Peripheral Vein, Percutaneous Approach (ICD-10-PCS; 2021-09-09)
PROC: 04753DZ Dilation of Superior Mesenteric Artery with Intraluminal Device, Percutaneous Approach (ICD-10-PCS; principal; 2021-09-10)
PROC: 30233N1 Transfusion of Nonautologous Red Blood Cells into Peripheral Vein, Percutaneous Approach (ICD-10-PCS; 2021-09-10)
DX: K55.069 Acute infarction of intestine, part and extent unspecified (principal); E43 Unspecified severe protein-calorie malnutrition; K66.1 Hemoperitoneum; K91.840 Postprocedural hemorrhage of a digestive system organ or structure following a digestive system procedure; K91.71 Accidental puncture and laceration of a digestive system organ or structure during a digestive system procedure; C91.10 Chronic lymphocytic leukemia of B-cell type not having achieved remission; D62 Acute posthemorrhagic anemia; K55.9 Vascular disorder of intestine, unspecified; I10 Essential (primary) hypertension; Y83.9 Surgical procedure, unspecified as the cause of abnormal reaction of the patient, or of later complication, without mention of misadventure at the time of the procedure; K58.9 Irritable bowel syndrome, unspecified; K21.9 Gastro-esophageal reflux disease without esophagitis; I25.10 Atherosclerotic heart disease of native coronary artery without angina pectoris; I73.9 Peripheral vascular disease, unspecified; E03.9 Hypothyroidism, unspecified; E78.5 Hyperlipidemia, unspecified; Z88.2 Allergy status to sulfonamides; Z88.8 Allergy status to other drugs, medicaments and biological substances; Z88.1 Allergy status to other antibiotic agents; Z95.5 Presence of coronary angioplasty implant and graft; Z91.038 Other insect allergy status; Z91.048 Other nonmedicinal substance allergy status; Z88.4 Allergy status to anesthetic agent; Z79.82 Long term (current) use of aspirin; Z79.899 Other long term (current) drug therapy; Z68.22 Body mass index [BMI] 22.0-22.9, adult; Z86.73 Personal history of transient ischemic attack (TIA), and cerebral infarction without residual deficits; Z90.49 Acquired absence of other specified parts of digestive tract; Z98.890 Other specified postprocedural states; Z90.710 Acquired absence of both cervix and uterus; Z98.49 Cataract extraction status, unspecified eye
CPT/HCPCS: 36245; 36415; 36430; 36569; 37220; 37236; 70450; 71045; 74174; 74176; 75716; 75726; 76937; 80048; 80069; 85014; 85018; 85025; 86850; 86900; 86901; 86923; 99152; 99153; A9270; C1725; C1751; C1760; C1769; C1876; C1887; C1894; J0360; J1644; J2250; J3010; J7030; J7050; P9016; Q9967

== ENCOUNTER 2021-10-01 14:50 | Observation (INO) | payer MEDICARE, OTHER ==
[~2021-10-01] VITALS: Ht 154.9 cm; Wt 57.8 kg
[2021-10-01 15:28] LABS: Hematocrit 36.2 % (33.0-51.0); Hemoglobin 11.3 g/dL (11.5-16.0); Mean Corpuscular HGB Conc 31.2 g/dL (31.5-36.5); Mean Corpuscular Volume 96 fL (80-100); Mean Platelet Volume 8.6 fL (9.1-12.4); Platelet Count 234 K/mm3 (150-400); RDW Coefficient Variation 14.9 % (11.7-14.2); RDW Standard Deviation 51.3 fL (35.1-46.3); Red Blood Cell Count 3.77 M/mm3 (3.80-5.20); White Blood Cell Count 10.59 K/mm3 (4.00-11.30)
[2021-10-01 15:55] LABS: Troponin I <0.015 ng/mL (0.000-0.040)
[2021-10-01 15:57] LABS: Alanine Aminotransfer (ALT/SGP 25 U/L (12-78); Albumin/Globulin Ratio 0.8 (0.8-1.8); Alk Phos 58 U/L (50-136); Anion Gap 6 mmol/L (6-16); Aspartate Aminotrans (AST/SGOT 14 U/L (12-37); Bilirubin, Total 0.3 mg/dL (0.1-1.0); Blood Urea Nitrogen 20 mg/dL (8-24); Bun/Creatinine Ratio 29.5 (12.0-20.0); CO2, Blood 28 mmol/L (21-32); Chloride, Blood 110 mmol/L (98-108); Creatinine, Blood 0.68 mg/dL (0.40-1.00); Glomerular Filtration Rate >60 (60-); Glucose, Blood 97 mg/dL (70-99); Potassium, Blood 3.7 mmol/L (3.5-5.5); Sodium, Blood 144 mmol/L (136-145)
[2021-10-01 16:02] LABS: BASOPHILS PERCENT MAN 0 % (0-2); EOSINOPHILS PERCENT MAN 1 % (0-6); LYMPHOCYTES % ATYPICAL MANUAL 1 % (0-0); LYMPHOCYTES ABSOLUTE MAN 4.23 K/mm3 (0.84-5.20); LYMPHOCYTES PERCENT MAN 39 % (21-46); MONOCYTES ABSOLUTE MAN 0.74 K/mm3 (0.16-1.47); MONOCYTES PERCENT MAN 7 % (4-13); SEG NEUTROPHILS PERCENT MAN 52 % (41-73); TOTAL CELLS COUNTED 100
[2021-10-01] MEDS ORDERED: NEBI5 PO (18:48)
[2021-10-01] MEDS ORDERED: LISI5 PO (18:48)
[2021-10-01] MEDS ORDERED: MERIBIN5 MG PO (18:49)
[2021-10-01] MEDS ORDERED: MULVITA PO (18:49)
[2021-10-01] MEDS ORDERED: ERGO400 PO (18:49)
[2021-10-01] MEDS ORDERED: ASPI81CH PO (18:49)
[2021-10-01] MEDS ORDERED: CLOP75 PO (18:50)
[2021-10-01] MEDS ORDERED: EZET10 PO (18:50)
[2021-10-01] MEDS ORDERED: LEVSOD25 PO (18:50)
--- NOTE | 2021-10-01 19:20 | NUR ---
RECEIVED REPORT FROM RN IN ED, PT TO ROOM AT APPROX 1855. SBA TRANSFER TO BED. VSS. NO OTHER ACUTE CHANGES. REPORT GIVEN TO ONCOMING RN.
[2021-10-02 00:45] LABS: BASOPHILS ABSOLUTE AUTO 0.04 K/mm3 (0.00-0.23); BASOPHILS PERCENT AUTO 0 % (0-2); EOSINOPHILS ABSOLUTE AUTO 0.18 K/mm3 (0.00-0.68); EOSINOPHILS PERCENT AUTO 2 % (0-6); Hematocrit 33.8 % (33.0-51.0); Hemoglobin 10.6 g/dL (11.5-16.0); IMMATURE GRAN ABSOLUTE AUTO 0.04 K/mm3 (0.00-0.10); IMMATURE GRAN PERCENT AUTO 0 % (0-1); LYMPHOCYTES ABSOLUTE AUTO 3.86 K/mm3 (0.84-5.20); LYMPHOCYTES PERCENT AUTO 39 % (21-46); MONOCYTES ABSOLUTE AUTO 0.97 K/mm3 (0.16-1.47); MONOCYTES PERCENT AUTO 10 % (4-13); Mean Corpuscular HGB 30.1 pg (26.0-34.0); Mean Corpuscular HGB Conc 31.4 g/dL (31.5-36.5); Mean Corpuscular Volume 96 fL (80-100); Mean Platelet Volume 8.4 fL (9.1-12.4); NEUTROPHILS PERCENT AUTO 49 % (41-73); Platelet Count 206 K/mm3 (150-400); RDW Standard Deviation 51.5 fL (35.1-46.3); Red Blood Cell Count 3.52 M/mm3 (3.80-5.20); White Blood Cell Count 9.99 K/mm3 (4.00-11.30)
[2021-10-02 01:09] LABS: CPK Creatine Kinase 29 U/L (26-193); Troponin I <0.015 ng/mL (0.000-0.040)
[2021-10-02 01:10] LABS: Creatine Kinase MB <1.0 ng/mL (0.0-3.6); Creatine Kinase MB Index Unable to Calculate (0.0-4.0)
[2021-10-02 01:17] LABS: Anion Gap 7 mmol/L (6-16); Blood Urea Nitrogen 24 mg/dL (8-24); Bun/Creatinine Ratio 29.3 (12.0-20.0); CHOL/HDL RATIO 5.3; CO2, Blood 28 mmol/L (21-32); Calcium, Blood 8.6 mg/dL (8.5-10.1); Chloride, Blood 110 mmol/L (98-108); Cholesterol 329 mg/dL (50-200); Creatinine, Blood 0.82 mg/dL (0.40-1.00); Glomerular Filtration Rate >60 (60-); Glucose, Blood 101 mg/dL (70-99); HDL Cholesterol 62 mg/dL (>39); LDL/HDL RATIO 3.9; Low Density Lipoprotein Chol 243 mg/dL (0-110); Potassium, Blood 4.8 mmol/L (3.5-5.5); Sodium, Blood 145 mmol/L (136-145); Triglycerides 119 mg/dL (30-160); Very Low Density Lipoprot Chol 23 mg/dL (6-32)
--- NOTE | 2021-10-02 01:54 | NUR ---
MD MADE AWARE OF PATIENT CP NOT RESOLVING AFTER NITRO X3 AND NOW INCREASED TO 8/10 SHARP PAIN AT TOP OF STERNUM AND 5/10 TIGHT PRESSURE AROUND LOWER RIBS. VSS.EKG DONE AND IN CHART. FENTANYL ADDED PRN AND ANOTHER ROUND OF NITRO X3 GIVEN WITH GOOD RELIEF NOW AT 3/10 PAIN. RESTING COMFORTABLY IN BED. ASKED ABOUT CARDIOLOGY CONSULT FOR AM AND MD LOOKING INTO IT. WILL CONTINUE TO MONITOR.
--- NOTE | 2021-10-02 05:35 | NUR ---
SHIFT SUMMARY PATIENT ARRIVED TO UNIT SHORTLY BEFORE SHIFT CHANGE AND FOUND TO A&OX4. VSS. SB IN THE 50'S-60'S. 3 EPSISODES OF CP NOTED AND NITRO GIVEN. THIRD ROUND TO BE GIVEN SHORTLY PRESSURE HAS RETURNED 5/10 UNDER RIB CAGE. SEEMS TO WORSEN WITH SOME MOVEMENT.MD MADE AWARE AND EKG DONE AND IN CHART. NO OBVIOUS CHANGES TO PREVIOUS EKG. CARDIOLOGY CONSULT SUGGESTED TO NIGHT MD BUT NO ORDER SEEN YET. ON RA SATING HIGH 90'S. UP WITH ONE ASSIT TO BATHROOM AND CALLING APPROPRIATLY. HAS NOT ATE SINCE BEFORE MIDNIGHT IN CASE CARDIOLOGY IS CONSULTED AND WANTS TO DO INTERVENTION. SOME GAS PAIN NOTED. NO ACUTE CONCERNS AT THIS TIME. WILL CONTINUE PLAN OF CARE UNTIL REPORT GIVEN TO PREM GOLD.
[2021-10-02 08:58] LABS: CPK Creatine Kinase 23 U/L (26-193); Troponin I <0.015 ng/mL (0.000-0.040)
[2021-10-02 09:05] LABS: Creatine Kinase MB <1.0 ng/mL (0.0-3.6); Creatine Kinase MB Index Unable to Calculate (0.0-4.0)
--- NOTE | 2021-10-02 18:08 | NUR ---
SHIFT SUMMARY NO ACUTE EVENTS THIS SHIFT, VSS. PT ENDORSED CHEST AND ABDOMINAL TRANSIENT PAIN, SOMETIMES PLEURITIC. ENDORSED SOME RELIEF WITH REPOSITIONING AND TYLENOL. DISCUSSED CHEST PAIN WITH DR. MCCLAIN. PT COMPLETED FIRST PART OF STRESS TEST TODAY. ON ROOM AIR, AMBULATING INDEPENDENTLY IN ROOM WITH STEADY GAIT.
[2021-10-03 05:08] LABS: BASOPHILS ABSOLUTE AUTO 0.04 K/mm3 (0.00-0.23); BASOPHILS PERCENT AUTO 1 % (0-2); EOSINOPHILS ABSOLUTE AUTO 0.23 K/mm3 (0.00-0.68); EOSINOPHILS PERCENT AUTO 3 % (0-6); Hematocrit 33.9 % (33.0-51.0); Hemoglobin 10.7 g/dL (11.5-16.0); IMMATURE GRAN ABSOLUTE AUTO 0.02 K/mm3 (0.00-0.10); IMMATURE GRAN PERCENT AUTO 0 % (0-1); LYMPHOCYTES ABSOLUTE AUTO 2.99 K/mm3 (0.84-5.20); LYMPHOCYTES PERCENT AUTO 36 % (21-46); MONOCYTES ABSOLUTE AUTO 0.84 K/mm3 (0.16-1.47); MONOCYTES PERCENT AUTO 10 % (4-13); Mean Corpuscular HGB 30.3 pg (26.0-34.0); Mean Corpuscular HGB Conc 31.6 g/dL (31.5-36.5); Mean Corpuscular Volume 96 fL (80-100); Mean Platelet Volume 8.8 fL (9.1-12.4); NEUTROPHILS ABSOLUTE AUTO 4.14 K/mm3 (1.96-9.15); NEUTROPHILS PERCENT AUTO 50 % (41-73); Platelet Count 197 K/mm3 (150-400); RDW Coefficient Variation 15.2 % (11.7-14.2); RDW Standard Deviation 52.6 fL (35.1-46.3); Red Blood Cell Count 3.53 M/mm3 (3.80-5.20); White Blood Cell Count 8.26 K/mm3 (4.00-11.30)
--- NOTE | 2021-10-03 06:27 | NUR ---
SHIFT SUMMARY ASSUMED CARE OF PT AT 1900. PT IS A/OX4. HEART SOUNDS HAVE A MURMUR. PT C/O CP ONCE AND THEN SLEPT T/O THE NIGHT. TELE SHOWS SINUS. PT HAS BEEN NPO SINCE MIDNIGHT FOR STRESS TEST THIS AM. PT IS INDEPENDENT IN ROOM. CALL LIGHT IN REACH, BED IN LOWEST POSTION.
[2021-10-03 06:28] LABS: Alanine Aminotransfer (ALT/SGP 24 U/L (12-78); Albumin, Blood 2.7 g/dL (3.4-5.0); Albumin/Globulin Ratio 0.9 (0.8-1.8); Alk Phos 50 U/L (50-136); Anion Gap 9 mmol/L (6-16); Aspartate Aminotrans (AST/SGOT 15 U/L (12-37); Bilirubin, Total 0.6 mg/dL (0.1-1.0); Blood Urea Nitrogen 25 mg/dL (8-24); Bun/Creatinine Ratio 33.7 (12.0-20.0); CO2, Blood 24 mmol/L (21-32); Calcium, Blood 8.5 mg/dL (8.5-10.1); Chloride, Blood 108 mmol/L (98-108); Creatinine, Blood 0.74 mg/dL (0.40-1.00); Globulin, Blood 3.1 g/dL (2.2-4.0); Glomerular Filtration Rate >60 (60-); Glucose, Blood 84 mg/dL (70-99); Potassium, Blood 4.6 mmol/L (3.5-5.5); Sodium, Blood 141 mmol/L (136-145); Total Protein, Blood 5.8 g/dL (6.4-8.2)
--- NOTE | 2021-10-03 11:31 | NUR ---
Patient is sitting up in bed and alert. Patient is very talkative and tells me about her life growing up, her family and her belief system (a mix betweeen [employer] W[employer] and the M[employer]). She talks about her medical issues and her 's medical problems including a planned trip next week to [facility] for a biopsy. I reinforce helpful attitudes and practices and provide therapeutic listening and companionship. Patient responds well and shows signs of an elevated mood. I will continue to remain available to patient and family.
[2021-10-03] MEDS ORDERED: GI COCKTAIL PO (13:51)
[2021-10-03] MEDS ORDERED: NITR.4SL SL (13:52)
[2021-10-03] MEDS ORDERED: PANT40 PO (13:52)
== END 2021-10-03 18:00 | disposition home or self-care (01) ==
LOC: ER 14:50 → PCU 14:51 → ERHOLD 14:51 → PCU 18:48
PROVIDERS: Hospitalist; Physician Assistant; ADMIT Internal Medicine
DX: R07.89 Other chest pain (principal); K21.00 Gastro-esophageal reflux disease with esophagitis, without bleeding; I25.10 Atherosclerotic heart disease of native coronary artery without angina pectoris; E78.5 Hyperlipidemia, unspecified; K58.9 Irritable bowel syndrome, unspecified; D86.9 Sarcoidosis, unspecified; K57.90 Diverticulosis of intestine, part unspecified, without perforation or abscess without bleeding; I10 Essential (primary) hypertension; E03.9 Hypothyroidism, unspecified; I73.9 Peripheral vascular disease, unspecified; Z88.2 Allergy status to sulfonamides; Z88.8 Allergy status to other drugs, medicaments and biological substances; Z88.4 Allergy status to anesthetic agent; Z88.1 Allergy status to other antibiotic agents; Z91.030 Bee allergy status; Z95.1 Presence of aortocoronary bypass graft; Z86.73 Personal history of transient ischemic attack (TIA), and cerebral infarction without residual deficits
CPT/HCPCS: 36415; 71046; 71275; 74160; 78452; 80048; 80053; 80061; 82550; 82553; 83690; 83880; 84484; 85025; 85379; 93005; 93010; 93017; 94760; A9270; A9500; J0706; J1650; J2785; J3010; Q9967

== ENCOUNTER 2022-02-20 12:19 | Emergency (ER) | payer MEDICARE, OTHER ==
[~2022-02-20] VITALS: Ht 152.4 cm; Wt 63.0 kg
[~2022-02-20 12:19] MED LIST changes: +ERGO400 PO; +GI COCKTAIL PO; +MERIBIN5 MG PO; +MULVITA PO
[2022-02-20 12:57] LABS: BASOPHILS ABSOLUTE AUTO 0.04 K/mm3 (0.00-0.23); BASOPHILS PERCENT AUTO 1 % (0-2); EOSINOPHILS ABSOLUTE AUTO 0.27 K/mm3 (0.00-0.68); EOSINOPHILS PERCENT AUTO 3 % (0-6); Hematocrit 42.8 % (33.0-51.0); Hemoglobin 14.1 g/dL (11.5-16.0); IMMATURE GRAN ABSOLUTE AUTO 0.01 K/mm3 (0.00-0.10); IMMATURE GRAN PERCENT AUTO 0 % (0-1); LYMPHOCYTES ABSOLUTE AUTO 3.72 K/mm3 (0.84-5.20); LYMPHOCYTES PERCENT AUTO 44 % (21-46); MONOCYTES ABSOLUTE AUTO 0.67 K/mm3 (0.16-1.47); MONOCYTES PERCENT AUTO 8 % (4-13); Mean Corpuscular HGB 31.5 pg (26.0-34.0); Mean Corpuscular HGB Conc 32.9 g/dL (31.5-36.5); Mean Corpuscular Volume 96 fL (80-100); Mean Platelet Volume 8.6 fL (9.1-12.4); NEUTROPHILS ABSOLUTE AUTO 3.73 K/mm3 (1.96-9.15); NEUTROPHILS PERCENT AUTO 44 % (41-73); Platelet Count 158 K/mm3 (150-400); RDW Coefficient Variation 13.2 % (11.7-14.2); RDW Standard Deviation 46.4 fL (35.1-46.3); Red Blood Cell Count 4.47 M/mm3 (3.80-5.20); White Blood Cell Count 8.44 K/mm3 (4.00-11.30)
[2022-02-20 13:18] LABS: Albumin, Blood 3.5 g/dL (3.4-5.0); Bilirubin, Total 0.5 mg/dL (0.1-1.0); Bun/Creatinine Ratio 33.1 (12.0-20.0); Calcium, Blood 8.7 mg/dL (8.5-10.1); Creatinine, Blood 0.72 mg/dL (0.40-1.00); Globulin, Blood 3.5 g/dL (2.2-4.0); Potassium, Blood 4.1 mmol/L (3.5-5.5)
== END 2022-02-20 15:05 | disposition home or self-care (01) ==
LOC: ER 12:19
PROVIDERS: Student in an Organized Health Care Education/Training Program
DX: R07.9 Chest pain, unspecified (principal); I10 Essential (primary) hypertension; I25.119 Atherosclerotic heart disease of native coronary artery with unspecified angina pectoris; Z95.1 Presence of aortocoronary bypass graft
CPT/HCPCS: 36415; 71046; 80053; 83880; 84484; 85025; 93005; 93010; 99285-25

== ENCOUNTER 2022-03-03 11:37 | Day surgery (SDC) | payer MEDICARE, OTHER ==
[~2022-03-03] VITALS: Ht 157.5 cm; Wt 64.5 kg
[~2022-03-03 11:37] MED LIST changes: +Protonix40 MG PO
== END 2022-03-03 15:18 | disposition home or self-care (01) ==
LOC: ORSCSDS 11:37
PROVIDERS: Student in an Organized Health Care Education/Training Program
PROC: 0DBL8ZX Excision of Transverse Colon, Via Natural or Artificial Opening Endoscopic, Diagnostic (ICD-10-PCS; principal; 2022-03-03 13:00)
PROC: 0DBP8ZX Excision of Rectum, Via Natural or Artificial Opening Endoscopic, Diagnostic (ICD-10-PCS; principal; 2022-03-03 13:00)
PROC: 0DBN8ZX Excision of Sigmoid Colon, Via Natural or Artificial Opening Endoscopic, Diagnostic (ICD-10-PCS; principal; 2022-03-03 13:00)
PROC: 0DBK8ZX Excision of Ascending Colon, Via Natural or Artificial Opening Endoscopic, Diagnostic (ICD-10-PCS; principal; 2022-03-03 13:00)
PROC: 0DB78ZX Excision of Stomach, Pylorus, Via Natural or Artificial Opening Endoscopic, Diagnostic (ICD-10-PCS; principal; 2022-03-03 13:00)
DX: R13.10 Dysphagia, unspecified (principal); R10.84 Generalized abdominal pain; Z80.0 Family history of malignant neoplasm of digestive organs; K21.9 Gastro-esophageal reflux disease without esophagitis; D12.5 Benign neoplasm of sigmoid colon; D12.2 Benign neoplasm of ascending colon; D12.3 Benign neoplasm of transverse colon; K62.1 Rectal polyp; K29.70 Gastritis, unspecified, without bleeding; K57.30 Diverticulosis of large intestine without perforation or abscess without bleeding; K64.4 Residual hemorrhoidal skin tags; I10 Essential (primary) hypertension; E78.5 Hyperlipidemia, unspecified; I25.10 Atherosclerotic heart disease of native coronary artery without angina pectoris; C91.10 Chronic lymphocytic leukemia of B-cell type not having achieved remission; Z79.899 Other long term (current) drug therapy; Z79.82 Long term (current) use of aspirin; E03.9 Hypothyroidism, unspecified; Z79.02 Long term (current) use of antithrombotics/antiplatelets; Z86.73 Personal history of transient ischemic attack (TIA), and cerebral infarction without residual deficits
CPT/HCPCS: 88305; J2704; J7120

== ENCOUNTER → 2022-04-13 | Outpatient (CLI) | payer MEDICARE, OTHER | END | disposition home or self-care (01) | LOC: LAB 18:07 → LAB SHORT 18:07 | DX: R30.9 Painful micturition, unspecified (principal) | CPT/HCPCS: 87077; 87086; 87186 ==

== ENCOUNTER 2022-05-05 06:07 | Day surgery (SDC) | payer MEDICARE, OTHER ==
[~2022-05-05] VITALS: Ht 154.9 cm; Wt 68.6 kg
--- NOTE | 2022-05-05 10:49 | NUR ---
PT ADMITTED TO ICU S/P PROX GR STENT PLACEMENT (PCU ) STATUS. PT AWAKE, DROWSY, DENIES C/O PAIN. PT BRADYCARDIC W RATE 40'S, PT STATES SHE RUNS A LOW HR NORMALLY. ANGIOSEAL TO RIGHT GROIN ASSESSED W HEART CENTER RN. SMALL KNOT W SMALL AMT OF OOZING TO DRSG. BLOOD OUTLINED, HAS NOT GROWN SINCE. BP STABLE. RIGHT DP/PT BY DOPPLER. WARM BLANKETS PLACED. PLAVIX AND ASA GIVEN. NS AT 100CC/HR, PT FLAT/SUPINE PER ORDERS. POST EKG COMPLETED.
--- NOTE | 2022-05-05 11:44 | NUR ---
RIGHT GROIN OOZING, SMALL KNOT FORMING, LARGER THAN PREVIOUSLY. PT SLIGHTLY HYPERTENSIVE. DR RODRIGUEZ CALLED AND UPDATED. PRESSURE BEING HELD TO RIGHT GROIN. NORVASC ORDERED FOR BP. DP/PT PULSES PER DOPPLER TO RIGHT AND LEFT FOOT W EACH GROIN CHECK (Q15MIN).
--- NOTE | 2022-05-05 14:18 | NUR ---
RIGHT GROIN CONTINUE TO HAVE SLOW OOZE. DR RODRIGUEZ NOTIFIED. FEM STOP PLACED W LIGHT PRESSURE USING STRAPS TO PROVIDE TENSION; BULB NOT INFLATED. GOOD SPO2 PLETH TO RIGHT TOE. PULSES DP/PT PER DOPPLER CONTINUE PREVIOUSLY ASSESSED. DR RODRIGUEZ AT BEDSIDE TO DISCUSS PT'S PROCEDURE AND CHOLESTEROL. PT REMAINS HYPERTENSIVE
--- NOTE | 2022-05-05 15:24 | NUR ---
DRSG CHANGED TO RIGHT GROIN, FEM STOP REPLACED W LIGHT TENSION TO STRAPS ONLY. AREA CONTINUES TO HAVE SLOW OOZE.
--- NOTE | 2022-05-05 18:39 | NUR ---
Pt. is awake in bed, and welcomes a spiritual care visit. Pt. is pleasant. Establish rapport and facilitate a short life review. Pt. displays evidence of peace and hope. Prayed with Pt. Pt. verbalized gratitude for the spiritual care visit.
--- NOTE | 2022-05-05 18:58 | NUR ---
PT REMAINS SUPINE IN REVERSE TREND. FEM STOP LOOSE WITH VERY LIGHT PRESSURE OVER RIGHT FEM ANGIOSEAL SITE, NO OOZING. CIRC CHECK REMAINS WNL AND UNCHANGED. PT DENIES C/O PAIN. BP IMPROVED. COREG HELD FOR BRADYCARDIA IN THE 40'S, NORVASC 10MG TOTAL GIVEN FOR BP.
[2022-05-06 03:39] LABS: BASOPHILS ABSOLUTE AUTO 0.04 K/mm3 (0.00-0.23); BASOPHILS PERCENT AUTO 1 % (0-2); EOSINOPHILS ABSOLUTE AUTO 0.23 K/mm3 (0.00-0.68); EOSINOPHILS PERCENT AUTO 3 % (0-6); Hematocrit 41.5 % (33.0-51.0); Hemoglobin 13.5 g/dL (11.5-16.0); IMMATURE GRAN ABSOLUTE AUTO 0.02 K/mm3 (0.00-0.10); IMMATURE GRAN PERCENT AUTO 0 % (0-1); LYMPHOCYTES ABSOLUTE AUTO 3.39 K/mm3 (0.84-5.20); LYMPHOCYTES PERCENT AUTO 39 % (21-46); MONOCYTES ABSOLUTE AUTO 0.78 K/mm3 (0.16-1.47); MONOCYTES PERCENT AUTO 9 % (4-13); Mean Corpuscular HGB 31.7 pg (26.0-34.0); Mean Corpuscular HGB Conc 32.5 g/dL (31.5-36.5); Mean Corpuscular Volume 97 fL (80-100); Mean Platelet Volume 9.1 fL (9.1-12.4); NEUTROPHILS ABSOLUTE AUTO 4.18 K/mm3 (1.96-9.15); NEUTROPHILS PERCENT AUTO 48 % (41-73); Platelet Count 155 K/mm3 (150-400); RDW Coefficient Variation 13.2 % (11.7-14.2); RDW Standard Deviation 46.7 fL (35.1-46.3); Red Blood Cell Count 4.26 M/mm3 (3.80-5.20); White Blood Cell Count 8.64 K/mm3 (4.00-11.30)
[2022-05-06 04:03] LABS: Calcium, Blood 8.2 mg/dL (8.5-10.1); Creatinine, Blood 0.71 mg/dL (0.40-1.00); Potassium, Blood 4.1 mmol/L (3.5-5.5)
--- NOTE | 2022-05-06 06:20 | NUR ---
SHIFT SUMMARY PATIENT IS ALERT AND ORIENTED X4. 02 SATS >93% ON RA, DENIES SOB. HR SB 40s-50s, BP STABLE, DENIES CP/PRESSURE. RIGHT GROIN ANGIO SITE DRESSING CHANGED AT START OF SHIFT, IESHA DRESSING PLACE, NO FURTHER BLEEDING. NO HEMATOMA. PATIENT UP TO TOILET, SBA. REPOSITIONS SELF IN BED. NO ACUTE CHANGES. CALL LIGHT IN REACH
--- NOTE | 2022-05-06 07:13 | NUR ---
ASSUME CARE: I have assumed care of this patient.
--- NOTE | 2022-05-06 11:16 | NUR ---
DISCHARGE: Pt discharged home. Discharge and medication teaching was reviewed with pt and handouts provided. Pt verbalizes understanding and agreement. Questions answered. IV was discontinued and she was wheeled out via wheelchair by RN to await her who will be taking her home.
== END 2022-05-06 11:16 | disposition home or self-care (01) ==
LOC: MHTC 06:07 → ICUE 10:11 → MHTC 13:22
PROVIDERS: Internal Medicine Cardiovascular Disease
DX: I25.119 Atherosclerotic heart disease of native coronary artery with unspecified angina pectoris (principal); I10 Essential (primary) hypertension; I77.1 Stricture of artery; K55.1 Chronic vascular disorders of intestine; E78.5 Hyperlipidemia, unspecified; I65.23 Occlusion and stenosis of bilateral carotid arteries; Z95.1 Presence of aortocoronary bypass graft
CPT/HCPCS: 36415; 76937; 80048; 84484; 85025; 85347; 93005; 93010; 93454; 99152; 99153; A9270; C1725; C1760; C1769; C1874; C1887; C1894; C9604; J1644; J2250; J3010; J7030; J7040; Q9967

== ENCOUNTER 2023-01-20 08:45 | Day surgery (SDC) | payer MEDICARE, OTHER ==
[~2023-01-20] VITALS: Ht 154.9 cm; Wt 75.3 kg
[2023-01-20] VITALS (24 sets, daily range): BP systolic 106–168; BP diastolic 48–81
[~2023-01-20 08:45] MED LIST changes: +VITAMIN D3 ORAL
[2023-01-20] MEDS ORDERED: NEXLETOL180 MG PO (13:10)
== END 2023-01-20 18:00 | disposition home or self-care (01) ==
LOC: MHTC 08:45
DX: T82.857A Stenosis of other cardiac prosthetic devices, implants and grafts, initial encounter (principal); I25.10 Atherosclerotic heart disease of native coronary artery without angina pectoris; I25.84 Coronary atherosclerosis due to calcified coronary lesion; I10 Essential (primary) hypertension; K21.9 Gastro-esophageal reflux disease without esophagitis; E78.5 Hyperlipidemia, unspecified; Z95.5 Presence of coronary angioplasty implant and graft; Z88.1 Allergy status to other antibiotic agents; Z88.8 Allergy status to other drugs, medicaments and biological substances; Z88.2 Allergy status to sulfonamides; Z79.82 Long term (current) use of aspirin; Z79.899 Other long term (current) drug therapy
CPT/HCPCS: 76937; 93457; 99152; 99153; C1769; C1887; C1894; J1644; J2250; J3010; J7030; Q9967

== ENCOUNTER 2024-03-07 08:57 | Day surgery (SDC) | payer MEDICARE, OTHER ==
[2024-03-07] VITALS (17 sets, daily range): BP systolic 109–194; BP diastolic 47–80
[~2024-03-07] VITALS: Ht 154.9 cm; Wt 75.3 kg
[~2024-03-07 08:57] MED LIST changes: +Lactated Ringer's 1,000 ML IV SCH; +NEXLETOL180 MG PO
--- NOTE | 2024-03-07 09:48 | NUR ---
Ambulatory in Day SurgeryPre-Op teaching done. Pt verbalizes understanding. Patient States Post-Procedure ride home has been arranged. History, Chart, Medications and Allergies reviewed before start of procedure.Patient confirms NPO status and agrees with scheduled surgery.
[2024-03-07] MEDS ORDERED: propofoL 40 ML IV ONE (10:20)
--- NOTE | 2024-03-07 10:29 | NUR ---
03/07/24 1029 Juan Jose Lemus HISTORY, CHART, MEDICATIONS AND ALLERGIES REVIEWED BEFORE START OF PROCEDURE. PATIENT CONFIRMS NPO STATUS AND AGREES WITH SCHEDULED PROCEDURE. 3-LEAD EKG REVIEWED WITH PHYSICIAN PRIOR TO START OF PROCEDURE. MONITOR INTACT WITH CONTINUOUS PULSE OXIMETRY,CAPNOGRAPHY, 3-LEAD EKG, INTERMITTENT BP. SUPPLEMENTAL O2 TO BE TITRATED THROUGHOUT PROCEDURE TO MAINTAIN O2 SATURATION ABOVE 90%. PATIENT DETERMINED TO BE ASA APPROPRIATE FOR PROPOFOL SEDATION PRIOR TO START OF PROCEDURE BY DR. ORLANDO.
[2024-03-07] MEDS ORDERED: Midazolam HCl 1MG / ML 2ML Vial ONE (10:42)
--- NOTE | 2024-03-07 11:59 | NUR ---
Discharge instructions reviewed with patient. Patient verbalizes understanding. Copy given to patient to take home. IV D/C INTACT. PT TOLERATED FLUIDS PRIOR TO DISCHARGE. NO ACUTE DISTRESS. HOME WITH FAMILY. Discharged via wheelchair to private car for ride home.
== END 2024-03-07 11:45 | disposition home or self-care (01) ==
LOC: ORSCMMR 08:57 → ORD 10:00 → ORSCMMR 10:00
PROVIDERS: Internal Medicine Gastroenterology
PROC: 0DJD8ZZ Inspection of Lower Intestinal Tract, Via Natural or Artificial Opening Endoscopic (ICD-10-PCS; principal; 2024-03-07 10:00)
DX: Z86.010 Personal history of colon polyps (principal); Z80.0 Family history of malignant neoplasm of digestive organs; K57.30 Diverticulosis of large intestine without perforation or abscess without bleeding; K64.4 Residual hemorrhoidal skin tags; I25.10 Atherosclerotic heart disease of native coronary artery without angina pectoris; K21.9 Gastro-esophageal reflux disease without esophagitis; E03.9 Hypothyroidism, unspecified; K64.8 Other hemorrhoids; Z79.02 Long term (current) use of antithrombotics/antiplatelets; Z79.82 Long term (current) use of aspirin; Z79.899 Other long term (current) drug therapy
CPT/HCPCS: J2250; J2704; J7120

== ENCOUNTER → 2024-03-14 | Outpatient (CLI) | payer MEDICARE, OTHER ==
[~2024-03-14] MED LIST changes: -Lactated Ringer's 1,000 ML IV SCH
== END | disposition home or self-care (01) ==
LOC: LAB 17:20 → LAB SHORT 17:20
DX: N39.0 Urinary tract infection, site not specified (principal); B96.20 Unspecified Escherichia coli [E. coli] as the cause of diseases classified elsewhere; Z16.11 Resistance to penicillins; Z16.23 Resistance to quinolones and fluoroquinolones
CPT/HCPCS: 87077; 87086; 87186

== ENCOUNTER → 2024-07-03 | Outpatient (CLI) | payer MEDICARE, OTHER | END | disposition home or self-care (01) | LOC: LAB SHORT 13:02 → LAB 13:02 | DX: R30.0 Dysuria (principal) | CPT/HCPCS: 87077; 87086; 87186 ==

== ENCOUNTER 2024-07-19 00:45 | Day surgery (SDC) | payer MEDICARE, OTHER ==
[~2024-07-19 00:45] MED LIST changes: +INCLISIRAN SODIUM 284 MG/1.5 ML SYRINGE SC SCH
[2024-07-19 11:01] VITALS: BP 166/58
== END 2024-07-19 11:36 | disposition home or self-care (01) ==
LOC: ATC 00:45
DX: E78.5 Hyperlipidemia, unspecified (principal); I73.9 Peripheral vascular disease, unspecified; I25.10 Atherosclerotic heart disease of native coronary artery without angina pectoris; I10 Essential (primary) hypertension; Z88.2 Allergy status to sulfonamides; Z91.030 Bee allergy status; Z79.82 Long term (current) use of aspirin; Z79.899 Other long term (current) drug therapy; Z95.1 Presence of aortocoronary bypass graft; Z88.8 Allergy status to other drugs, medicaments and biological substances
CPT/HCPCS: 96372; J1306

== ENCOUNTER 2024-10-18 06:02 | Day surgery (SDC) | payer MEDICARE, OTHER ==
[2024-10-18 11:40] VITALS: BP 169/69
== END 2024-10-18 11:54 | disposition home or self-care (01) ==
LOC: ATC 06:02
DX: E78.5 Hyperlipidemia, unspecified (principal); I25.10 Atherosclerotic heart disease of native coronary artery without angina pectoris; K21.9 Gastro-esophageal reflux disease without esophagitis; I10 Essential (primary) hypertension; I73.9 Peripheral vascular disease, unspecified; Z88.2 Allergy status to sulfonamides; Z88.8 Allergy status to other drugs, medicaments and biological substances; Z91.030 Bee allergy status; Z79.82 Long term (current) use of aspirin; Z79.899 Other long term (current) drug therapy
CPT/HCPCS: 96372; J1306

== ENCOUNTER → 2025-01-20 | Outpatient (CLI) | payer MEDICARE, OTHER ==
[~2025-01-20] MED LIST changes: -INCLISIRAN SODIUM 284 MG/1.5 ML SYRINGE SC SCH
== END | disposition home or self-care (01) ==
LOC: LAB SHORT 10:47 → LAB 10:47
DX: N39.0 Urinary tract infection, site not specified (principal)
CPT/HCPCS: 87077; 87086; 87186

== ENCOUNTER → 2025-03-28 | Outpatient (CLI) | payer MEDICARE, OTHER | LOC: LAB SHORT 16:07 → LAB 16:07 | DX: R30.0 Dysuria (principal) | CPT/HCPCS: 87086 ==

== ENCOUNTER 2025-04-17 01:12 | Day surgery (SDC) | payer MEDICARE, OTHER ==
[~2025-04-17 01:12] MED LIST changes: +INCLISIRAN SODIUM 284 MG/1.5 ML SYRINGE SC SCH
[2025-04-17] MEDS ORDERED: HYDCHL25 PO (10:04)
[2025-04-17 10:08] VITALS: BP 155/63
== END 2025-04-17 10:29 | disposition home or self-care (01) ==
LOC: ATC 01:12
DX: E78.5 Hyperlipidemia, unspecified (principal); I25.10 Atherosclerotic heart disease of native coronary artery without angina pectoris; I10 Essential (primary) hypertension; K21.9 Gastro-esophageal reflux disease without esophagitis; R06.09 Other forms of dyspnea; Z88.8 Allergy status to other drugs, medicaments and biological substances; Z88.2 Allergy status to sulfonamides; Z88.1 Allergy status to other antibiotic agents; Z91.030 Bee allergy status; Z79.899 Other long term (current) drug therapy; Z79.82 Long term (current) use of aspirin
CPT/HCPCS: 71046; 96372; J1306

== ENCOUNTER 2025-08-29 08:45 | Day surgery (SDC) | payer OTHER, MEDICARE ==
[~2025-08-29 08:45] MED LIST changes: +HYDCHL25 PO; -INCLISIRAN SODIUM 284 MG/1.5 ML SYRINGE SC SCH
[2025-08-29] MEDS ORDERED: Lidocaine HCl 4% Cream 5 GM ONE (14:09)
== END 2025-08-29 23:31 | disposition home or self-care (01) ==
LOC: WOUND 08:45
DX: T81.31XA Disruption of external operation (surgical) wound, not elsewhere classified, initial encounter (principal); L97.822 Non-pressure chronic ulcer of other part of left lower leg with fat layer exposed; I87.2 Venous insufficiency (chronic) (peripheral); I73.9 Peripheral vascular disease, unspecified; I10 Essential (primary) hypertension; I25.10 Atherosclerotic heart disease of native coronary artery without angina pectoris; M19.90 Unspecified osteoarthritis, unspecified site; Z79.890 Hormone replacement therapy; Z79.899 Other long term (current) drug therapy; Z88.1 Allergy status to other antibiotic agents; Z88.2 Allergy status to sulfonamides; Z88.4 Allergy status to anesthetic agent; Z88.8 Allergy status to other drugs, medicaments and biological substances; Z91.048 Other nonmedicinal substance allergy status; Z98.890 Other specified postprocedural states
CPT/HCPCS: A6213; A9270; G0463

== ENCOUNTER 2025-09-05 00:21 | Day surgery (SDC) | payer MEDICARE, OTHER ==
[2025-09-05] MEDS ORDERED: Lidocaine HCl 4% Cream 5 GM ONE (11:12)
== END 2025-09-05 23:00 | disposition home or self-care (01) ==
LOC: WOUND
DX: T81.31XA Disruption of external operation (surgical) wound, not elsewhere classified, initial encounter (principal); I87.2 Venous insufficiency (chronic) (peripheral); I73.9 Peripheral vascular disease, unspecified
CPT/HCPCS: A6213; A9270